=== PATIENT | male | born 1985 | race American Indian/Alaskan Native ===

== ENCOUNTER 2016-11-24 20:02 | Emergency (ER) | payer SELFPAY ==
[2016-11-24] MEDS ORDERED: TYLENOL ONE (20:19)
[2016-11-24] MEDS ORDERED: TYLENOL PO ONE (20:28)
--- NOTE | 2016-11-24 20:54 | XRay Report ---
FINAL REPORT EXAM: XR HIP 2-3V LT HISTORY: fall, left hip pain, send for report TECHNIQUE: Single-view pelvis with additional view of the left hip. 2 images PRIORS: None. FINDINGS: Bone mineralization appears within normal limits. The pelvic ring appears intact. No acute fracture or subluxation is identified. No gross abnormality is seen in the soft tissues. IMPRESSION: 1. No acute osseous abnormality is identified.
--- NOTE | 2016-11-24 21:16 | Emergency Department Report ---
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 He is an air conditioning technologist. He denies falling at that time. This occurred 2 days ago and starting the evening patient says that the pain has been getting progressively worse. It worsens with movement of the left lower extremity and certain movements cause a throbbing sensation at the patient tried some ibuprofen without much relief. He is able to ambulate but has to limp secondary to pain. He denies any past medical history. He has a primary care doctor, Dr. Jackson, but has not seen them regarding his symptoms. ED Past Medical Hx - Past Medical History Previous Medical History?: No - Surgical History Past Surgical History?: No - Social History Smoking Status: Never Smoker - Medications Home Medications: Home Medications Medication Instructions Recorded Confirmed Last Taken Type HYDROcodone/APAP 5-325 [[place] 1 each PO Q6HR PRN #10 tablet 11/24/16 Unknown Rx 5/325] ED Review of Systems ROS: Stated complaint: L LEG PAIN/WORK ACCIDENT Other details as noted in HPI Comment: All other systems reviewed and negative Constitutional: denies: chills, fever Eyes: denies: eye pain, eye discharge, vision change ENT: denies: ear pain, throat pain Respiratory: denies: cough, shortness of breath, wheezing Cardiovascular: denies: chest pain, palpitations Gastrointestinal: denies: abdominal pain, nausea, diarrhea Genitourinary: denies: urgency, dysuria Musculoskeletal: arthralgia. denies: joint swelling Skin: denies: rash, lesions Neurological: denies: headache, weakness, paresthesias Physical Exam - Physical Exam Vital Signs: Vital Signs 11/24/16 20:20 Temperature 98.4 F Pulse Rate 73 Blood Pressure 138/97 [Right] O2 Sat by Pulse 100 Oximetry Physical Exam: GENERAL: The patient is well-developed well-nourished. HEENT: Normocephalic. Atraumatic. Extraocular motions are intact. Patient has moist mucous membranes. Pupils equal reactive to light bilaterally. NECK: Supple. Trachea is midline. CHEST/LUNGS: Clear to auscultation. There is no respiratory distress noted. HEART/CARDIOVASCULAR: Regular. There is no tachycardia. There is no gallop rub or murmur. ABDOMEN: Abdomen is soft, nontender. Patient has normal bowel sounds. There is no abdominal distention. SKIN: There is no rash. There is no edema. There is no diaphoresis. NEURO: The patient is awake, alert, and oriented. The patient is cooperative. The patient has no focal neurologic deficits. The patient has normal speech. MUSCULOSKELETAL: Unable to reproduce the patient's pain to palpation. However I am able to reproduce the pain with both passive and active movement of the left hip and leg. Patient is able to ambulate but does so with a limp. ED Course Vital Signs 11/24/16 20:20 Temperature 98.4 F Pulse Rate 73 Blood Pressure 138/97 [Right] O2 Sat by Pulse 100 Oximetry ED Medical Decision Making - Radiology Data Radiology results: image reviewed interpreted by me: X-ray of the left hip does not show any fracture, dislocation or any acute process. - Medical Decision Making 31-year-old male presents emergency Department with 2 day history of left upper thigh and hip pain after he twisted his leg at work. X-ray does not show any fracture, dislocation or any acute process. The patient denies any pain actually in the groin or any swelling concerning for any type of hernia. He is able to ambulate but has a limp. Therefore he'll be given some crutches. He has been given some pain medication and referral for an orthopedist. Vital signs stable throughout his ED course. He'll return to the ER with any worsening of symptoms or any acute distress. - Differential Diagnosis fracture, dislocation, ligament tear, muscle strain, muscle spasm Critical Care Time: No Critical care attestation.: If time is entered above; I have spent that time in minutes in the direct care of this critically ill patient, excluding procedure time. ED Disposition Clinical Impression: Left hip pain Disposition: DISCHARGED TO HOME OR SELFCARE Is pt being admited?: No Condition: Stable Instructions: Arthralgia (ED) Additional Instructions: Please follow-up with your primary care doctor in the next few days. Return to the emergency department with any worsening of your symptoms or any acute distress. I referral for a local orthopedist, Dr. Casas, to follow up regarding your left hip pain. You've been prescribed a medication that is sedating. Therefore this medication cannot be mixed with alcohol, or taken prior to driving, working, or being responsible for children. Prescriptions: HYDROcodone/APAP 5-325 [[place] 5/325] 1 each PO Q6HR PRN #10 tablet PRN Reason: Pain Forms: Work/School Release Form(ED) Time of Disposition: 21:16
[2016-11-24 21:49] VITALS: BP 121/82
== END 2016-11-24 21:52 | disposition home or self-care (01) ==
LOC: ED 20:02
DX: M25.552 Pain in left hip (principal); X50.1XXA Overexertion from prolonged static or awkward postures, initial encounter; Y93.89 Activity, other specified; Y99.9 Unspecified external cause status; Y92.89 Other specified places as the place of occurrence of the external cause
CPT/HCPCS: 99283